=== PATIENT | male | born 1940 | race Caucasian/White ===

== ENCOUNTER → 2018-09-08 | Day surgery (SDC) | payer MEDICARE ==
[2018-09-07 14:35] LABS: BASOPHILS # (AUTO) 0.1 (0.0-0.1); BASOPHILS % 0.7 % (0.0-1.0); EOSINOPHILS # (AUTO) 0.2 (0.0-0.4); EOSINOPHILS % 2.7 % (0.0-6.0); HEMATOCRIT 43.4 % (38.2-49.6); HEMOGLOBIN 14.7 g/dL (14.0-18.0); LYMPHOCYTES # (AUTO) 0.7 (1.0-3.2); LYMPHOCYTES % 8.9 % (18.0-39.1); MEAN CORPUSCULAR HGB CONC 33.9 g/dL (31-35); MEAN CORPUSCULAR VOLUME 94.3 fL (81-99); MONOCYTES # (AUTO) 0.8 (0.2-0.8); MONOCYTES % 10.9 % (4.4-11.3); NEUTROPHILS # (AUTO) 5.8 (2.1-6.9); NEUTROPHILS % 76.5 % (38.7-80.0); PLATELET COUNT 234 x10e3/uL (140-360)
[2018-09-07 14:59] LABS: INR 0.94; PROTHROMBIN TIME 13.4 seconds (11.9-14.5)
[2018-09-07 15:09] LABS: ALBUMIN 4.1 g/dL (3.5-5.0); ALBUMIN/GLOBULIN RATIO 1.7 (0.8-2.0); ANION GAP 12.2 mmol/L (8-16); CALCIUM 9.2 mg/dL (8.4-10.2); CREATININE, SERUM 1.71 mg/dL (0.72-1.25); POTASSIUM 4.2 mmol/L (3.5-5.1)
[2018-09-08] VITALS (12 sets, daily range): BP systolic 98–154; BP diastolic 50–77
[~2018-09-08] VITALS: Ht 180.3 cm; Wt 90.7 kg
[~2018-09-08] MED LIST: BENICAR20 MG PO; FENTANYL CITRATE/PF 100MCG/2 ML INJ ONE; HEPARIN SOD/SOD CHLORIDE 2,000 ML ONE; HYDROCHLOROTHIA25 MG PO; IOPAMIDOL 300MG/ML 100 ML INFUS..BTL IV ONE; LIDOCAINE HCL 1% LOCAL INJ 20 ML VIAL ONE; MIDAZOLAM HCL 2 MG/2 ML VIAL ONE; SODIUM CHLORIDE 0.9% 1000ML 1,000 ML ONE; TOPROL XL25 MG PO; VERAPAMIL HCL 2.5 MG/ML 2 ML VIAL ONE
--- OUTSIDE RECORDS SUMMARY | 2018-09-08 08:44 | XMS REPORT | Clinical Summary ---
Author Author [facility] Organization [facility] Address Unknown Phone Unavailable Care Team Providers Care Sorter Packer Name Role Phone Tessa Merrill MD PCP Allergies No Known Allergies Medications End Date Status Medication Sig Dispensed Refills Start Date Active olmesartan (BENICAR) 5 MG Take 5 mg by 1 tablet mouth once 7 daily. Active Problems No known active problems Encounters Care Team Description Date Type Specialty Radha Chin Jr., MD Asymptomatic hypertension (Primary Dx) 06/20/2018 Emergency Emergency Medicine after 09/07/2017 Family History Medical History Relation Name Comments Diabetes Mother Relation Name Status Comments Mother Social History Date Tobacco Use Types Packs/Day Years Used Never Smoker Smokeless Tobacco: Never Used Alcohol Use Drinks/Week oz/Week Comments Yes 6 Cans of Every other day beer Sex Assigned at Date Recorded Not on file Industry Job Start Date Occupation Not on file Not on file Not on file Travel End Travel History Travel Start No recent travel history available. Last Filed Vital Signs Time Taken Vital Sign Reading 06/20/2018 10:19 PM [employer] Blood Pressure 134/65 06/20/2018 10:19 PM [employer] Pulse 85 06/20/2018 10:19 PM [employer] Temperature 36.4 C (97.5 F) 06/20/2018 10:19 PM [employer] Respiratory Rate 19 06/20/2018 6:48 PM [employer] Oxygen Saturation 94% - Inhaled Oxygen - Concentration 06/20/2018 5:21 PM [employer] Weight 90.7 kg (200 lb) 06/20/2018 5:21 PM [employer] Height 180.3 cm (5' 11") 06/20/2018 5:21 PM [employer] Body Mass Index 27.89 Plan of Treatment Health Maintenance Due Date Last Done Comments SHINGLES VACCINES (1 of 1992 2) PNEUMOCOCCAL 2007 POLYSACCHARIDE VACCINE AGE 65 AND OVER PNEUMOCOCCAL-13 2007 INFLUENZA VACCINE 03/16/2018 Procedures Comments Procedure Name Priority Date/Time Associated Diagnosis ECG ED PRELIMINARY Routine 06/20/2018 INTERPRETATION 7:03 PM [employer]TE [employer] ESTIMATED GFR STAT 06/20/2018 5:56 PM [employer]TE DR[employer] PROTHROMBIN TIME WITH INR STAT 06/20/2018 5:56 PM [employer] PARTIAL THROMBOPLASTIN STAT 06/20/2018 TIME (PTT) 5:56 PM [employer]TE DR[employer] B NATRIURETIC PEPTIDE STAT 06/20/2018 5:56 PM [employer]TE [employer] TROPONIN STAT 06/20/2018 5:56 PM [employer] COMPREHENSIVE METABOLIC STAT 06/20/2018 PANEL 5:56 PM [employer]TE DRIVER [employer] HC COMPLETE BLD COUNT STAT 06/20/2018 W/AUTO DIFF 5:56 PM [employer] XR CHEST 2 VW STAT 06/20/2018 5:42 PM [employer] ECG 12-LEAD STAT 06/20/2018 4:56 PM [employer]TE [employer] after 09/07/2017 Results * ECG ED Preliminary Interpretation - NOT AN ORDER (06/20/2018 7:03 PM ROUTE DRIVER SALESPERSON) Narrative Performed At Radha Chin Jr., MD 06/22/20183:56 AM ECG ED Preliminary Interpretation - Not an Order Performed by: RADHA CHIN JR. Authorized by: RADHA CHIN JR. ECG reviewed by ED Physician in the absence of a regional director: yes Rate: ECG rate:82 ECG rate assessment: normal Rhythm: Rhythm: sinus rhythm Ectopy: Ectopy: none QRS: QRS axis:Normal QRS intervals:Normal ST segments: ST segments:Abnormal ST segment depression noted on lead: mild, noted diffusely. * Estimated GFR (06/20/2018 5:56 PM ROUTE DRIVER SALESPERSON) Estimated GFR 48 (A) mL/min/1.73 m2 [facility] Comment: PATHOLOGY AND CatergoryUnitsInte GENOMIC MEDICINE rpretation G1 >=90 Normal or high G2 60-89Mildly decreased [id number] Mildly to moderately decreased [id number] Moderately to severely decreased G4 15-29Severely decreased G5 <15Kidney failure The eGFR was calculated using the Chronic Kidney Disease Epidemiology Collaboration (CKD-EPI) equation. Interpretation is based on recommendations of the National Kidney Foundation-Kidney Disease Outcomes Quality Initiative (NKF-KDOQI) published in 2014. Specimen Plasma specimen Performing Organization Address City/[facility]/Zipcode Phone Number [address] [place] [address] PATHOLOGY AND appAttach [facility] * Troponin (06/20/2018 5:56 PM ROUTE DRIVER SALESPERSON) Troponin <0.30 0.00 - 0.30 ng/mL [facility] Comment: PATHOLOGY AND 0.11 - 1.49 GENOMIC MEDICINE ng/mlMay indicate increased risk of acute coronary syndrome. >=1.5 ng/ml Consistent with acute myocardial infarction. The diagnostic value of a single normal or non-diagnostic result is questionable.Serial samples at 2-6 hour intervals are required to rule out acute myocardial injury. Specimen Plasma specimen Performing Organization Address [facility] Phone Number [address] [place] [address] PATHOLOGY AND [employer] [facility] * Partial thromboplastin time, activated (06/20/2018 5:56 PM ROUTE DRIVER SALESPERSON) PTT 27.8 23.0 - 36.0 sec [facility] Comment: PATHOLOGY AND PTT therapeutic range for GENOMIC MEDICINE unfractionated heparin is 61.0-112.0 seconds which corresponds to Anti-Xa 0.3-0.7 U/ml. Note:Change in Panic Value The PTT Panic Value is changing from 110 sec. to 100 sec. due to new instrumentation and reagents. Correlation studies have been performed to validate this result. Specimen Blood Performing Organization Address [facility] Phone Number [address] [place] [id number] PATHOLOGY AND [employer] [facility] * Prothrombin time with INR (06/20/2018 5:56 PM ROUTE DRIVER SALESPERSON) Prothrombin time 12.5 11.5 - 14.5 sec [facility] PATHOLOGY AND app[employer]ach MEDICINE INR 0.96 [facility] Comment: PATHOLOGY AND For patients on anticoagulant GENOMIC MEDICINE therapy, reference ranges below: Indication: INR Value Treatment of Venous Thrombosis, 2.0-3.0 pulmonary emboli, or prophylaxis of a venous thrombosis, or systemic emboli. High dose, high risk patients 3.0-4.5 with mechanical valves. NOTE:INR values over 3.0 are sometimes associated with gastrointestinal hemorrhage, especially values over 4.0. Specimen Blood Performing Organization Address City/State/Zipcode Phone Number [place] [phone] [place] [address] PATHOLOGY AND GENOMIC MEDICINE * CBC with platelet and differential (06/20/2018 5:56 PM ROUTE DRIVER SALESPERSON) WBC 7.1 4.2 - 11.0 k/uL [facility]Y AND GENOMIC MEDICINE RBC 4.63 4.04 - 5.86 m/uL [facility]Y AND GENOMIC MEDICINE HGB 14.8 13.0 - 17.3 g/dL [facility] AND GENOMIC MEDICINE HCT 44.3 34.0 - 45.0 % [facility] AND GENOMIC MEDICINE MCV 95.7 80.0 - 98.0 fL [facility] AND GENOMIC MEDICINE MCH 32.0 27.0 - 34.0 pg [facility]OLOGY AND GENOMIC MEDICINE MCHC 33.4 31.5 - 36.5 g/dL [facility]Y AND GENOMIC MEDICINE RDW - SD 45.4 37.0 - 51.0 fL [facility] AND GENOMIC MEDICINE MPV 10.5 (H) 7.4 - 10.4 fL [facility] AND GENOMIC MEDICINE Platelet count 211 150 - 400 k/uL [facility] AND GENOMIC MEDICINE Nucleated RBC 0.00 /100 WBC [facility]OLOGY AND GENOMIC MEDICINE Neutrophils 71.5 (H) 36.0 - 66.0 % [facility] AND GENOMIC MEDICINE Lymphocytes 11.9 (L) 24.0 - 44.0 % [facility] AND GENOMIC MEDICINE Monocytes 13.7 (H) 0.0 - 6.0 % [facility] AND GENOMIC MEDICINE Eosinophils 1.8 0.0 - 6.0 % [facility] AND GENOMIC MEDICINE Basophils 0.8 0.0 - 1.2 % [facility] AND GENOMIC MEDICINE Immature granulocytes 0.3 0.0 - 1.0 % [facility] AND GENOMIC MEDICINE Specimen Blood Performing Organization Address City/[facility] Phone Number [facility] [address] [place] [address] PATHOLOGY AND GENOMIC MEDICINE * B natriuretic peptide (06/20/2018 5:56 PM ROUTE DRIVER SALESPERSON) BNP 96 0 - 100 pg/mL [facility]OLOGY AND GENOMIC MEDICINE Specimen Blood Performing Organization Address [facility] Centercode Phone Number [facility] [place] [address] [place] [address] PATHOLOGY AND GENOMIC MEDICINE * Comprehensive metabolic panel (06/20/2018 5:56 PM ROUTE DRIVER SALESPERSON) Sodium 138 135 - 150 mEq/L [facility]OLOGY AND GENOMIC MEDICINE Potassium 4.1 3.5 - 5.0 mEq/L [facility]OLOGY AND GENOMIC MEDICINE Chloride 102 98 - 112 mEq/L [facility]OLOGY AND GENOMIC MEDICINE CO2 25 24 - 31 mmol/L [facility]Y AND GENOMIC MEDICINE Anion gap 11@ANIO 7 - 15 mEq/L [facility]Y AND GENOMIC MEDICINE BUN 19 (H) 7 - 18 mg/dL [facility] AND GENOMIC MEDICINE Creatinine 1.40 (H) 0.70 - 1.20 mg/dL [facility] AND GENOMIC MEDICINE Glucose 111 (H) 65 - 100 mg/dL [facility] AND GENOMIC MEDICINE Calcium 8.9 8.8 - 10.2 mg/dL [facility] AND GENOMIC MEDICINE Protein 6.5 6.3 - 8.3 g/dL [facility] AND GENOMIC MEDICINE Albumin 3.7 3.5 - 5.0 g/dL [facility] AND GENOMIC MEDICINE A/G ratio 1.3 0.7 - 3.8 [facility] AND GENOMIC MEDICINE Alkaline phosphatase 30 0 - 129 U/L [facility] AND GENOMIC MEDICINE AST 19 10 - 50 U/L [facility] AND GENOMIC MEDICINE ALT 16 5 - 50 U/L [facility] AND GENOMIC MEDICINE Total bilirubin 0.4 0.2 - 1.2 mg/dL [facility] AND GENOMIC MEDICINE Specimen Plasma specimen Performing Organization Address [facility] Centercode Phone Number [facility] [address] [place] [address] PATHOLOGY AND GENOMIC MEDICINE * XR Chest 2 Vw (06/20/2018 5:42 PM ROUTE DRIVER SALESPERSON) Narrative Performed At EXAMINATION:XR CHEST 2 VW [facility] CLINICAL HISTORY:Chest painnormal ekg COMPARISON:None Technique:PA and lateral chest radiographs are obtained. IMPRESSION: 1.There appear to be COPD changes bilaterally, as well as mild scarring in the left lower lobe. No acute consolidation is seen. 2.There is no pleural fluid or pneumothorax. 3.The heart size and mediastinal contours are within normal limits. 4.There is no significant skeletal abnormality. [id number] Procedure Note Hm Interface, Radiology Results Incoming - 06/20/2018 5:47 PM ROUTE DRIVER SALESPERSON EXAMINATION: XR CHEST 2 VW CLINICAL HISTORY: Chest pain normal ekg COMPARISON: None Technique: PA and lateral chest radiographs are obtained. IMPRESSION: 1. There appear to be COPD changes bilaterally, as well as mild scarring in the left lower lobe. No acute consolidation is seen. 2. There is no pleural fluid or pneumothorax. 3. The heart size and mediastinal contours are within normal limits. 4. There is no significant skeletal abnormality. [id number] Performing Organization Address [facility] Phone Number [facility] [address] [place] [address] * ECG 12 lead (06/20/2018 4:56 PM ROUTE DRIVER SALESPERSON) Ventricular rate 82 [facility] Atrial rate 82 [facility] OR interval 126 [facility] QRSD interval 84 [facility] QT interval 372 [facility] QTC interval 434 [facility] P axis 1 59 [facility] QRS axis 1 -19 [facility] T wave axis 22 [facility] EKG impression Normal sinus [facility] rhythm-Nonspecific ST abnormality-Abnormal ECG-No previous ECGs available- Performing Organization Address City/State/[facility] Cent[facility]ode Phone Number [facility] [address] [place] [address] after 09/07/2017 Insurance Payer Benefit Subscriber ID Type Phone Address Plan / Group [facility] MEDICARE [facility] [place]xxxxxxxx [facility] [place] Advance Directives Patient has advance care planning documents on file. For more information, [place] contact: Tho Gonsales [address] [facility] [place] [address]
--- NOTE | 2018-09-08 12:00 | NUR ---
1200 Received report Carrier Rn Identifierx2 Peripheral fix x2 CSI Dr Shi Back to baseline orientation PEERLA Resp. shallow and regular 98% Ra. Abd soft and non tender denies necessity to defecate or urinate. left iv infusing w/o s/s infiltration controller set at 75cchr. Bilateral femoral pulses present PT/DP Rt groin mynx dressing dry and intact w/o. at bedside. Deepthi Ordered diet tray denies c/o Cp or sob Pt in Sinus marry. For dc with flat time to 330pm return to Dr. Shi office for followup
--- NOTE | 2018-09-08 15:30 | NUR ---
1530 discharge instructions completed to Deepthi with copies Down time compleed site to rt groin w/o bleeding and hematoma Tolerating po intake and voiding well Iv removed site w/o infiltration, coban dressing assisted to car per [facility] staff escort Yulia [employer]. no c/o distress vs stable and vs as well as entry site denies CP or SOB PPx4 present. 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
--- NOTE | 2018-10-17 18:40 | Operative Report ---
DATE OF PROCEDURE: 09/08/2018 SURGEON: Kal Shi DO PROCEDURES PERFORMED: 1. Abdominal aortography. 2. Third-order peripheral angiography of the left lower extremity. 3. Conscious sedation, 90 minutes. 4. Orbital atherectomy and percutaneous transluminal angioplasty of the left posterior tibial artery. 5. Percutaneous transluminal angioplasty of the left peroneal artery. 6. Status post drug-coated balloon angioplasty of the tibioperoneal trunk. 7. Primary thrombectomy, artery PREPROCEDURE DIAGNOSIS: Peripheral arterial disease with claudication. POSTPROCEDURE DIAGNOSIS: Peripheral arterial disease with claudication. ESTIMATED BLOOD LOSS: Less than 20 mL. SPECIMENS REMOVED: None. PROCEDURE IN DETAIL: After informed consent was obtained, the patient was brought to the cardiac catheterization laboratory in a fasting and nonsedated state. Bilateral groins were prepped and draped in the usual sterile fashion. Lidocaine 2% was infiltrated over the right anterior groin for local anesthesia. Using micropuncture needle, the right common femoral artery was accessed via modified Seldinger technique and a 5-Omani sheath was placed. Next, abdominal aortography was performed using Omni Flush catheter. 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 Decision was made to perform percutaneous intervention and the patient received systemic heparin for therapeutic anticoagulation. Next, I exchanged out [id number] for an up-and-over 65 cm sheath. Next, lesion in the posterior tibial vessel was crossed with wire escalation and I exchanged out for a Viper wire. Next, I performed atherectomy of the left posterior tibial with a CSI Diamondback balloon and then subsequent angioplasty with a 2.5 then upscaled to a 3 mm balloon. Next, I performed a balloon angioplasty of the tibioperoneal trunk with a 5 mm Lutonix coated balloon. There was some plaque shift into the peroneal vessel, which also had to be angioplastied with the 5 mm balloon. Final angiography revealed excellent angioplasty results of the tibioperoneal trunk, peroneal and posterior tibial vessels. 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 The patient tolerated the procedure well with no immediate complications. He was transferred back to his room in stable condition. DO SRINIVASA Carrillo/JESSICA /[id number] SANA
== END | disposition home or self-care (01) ==
LOC: CATH LAB 08:41
PROVIDERS: ATTEND Internal Medicine Cardiovascular Disease
DX: I70.212 Atherosclerosis of native arteries of extremities with intermittent claudication, left leg (principal); I70.92 Chronic total occlusion of artery of the extremities; I10 Essential (primary) hypertension; R60.0 Localized edema; I20.9 Angina pectoris, unspecified; I87.2 Venous insufficiency (chronic) (peripheral); Z01.812 Encounter for preprocedural laboratory examination; Z82.49 Family history of ischemic heart disease and other diseases of the circulatory system
CPT/HCPCS: 36415; 37229; 37232; 75625; 75710; 80053; 85025; 85347; 85610; C1724; C1725 ×4; C1760; C1766; C2623; J2001; J2250; J7030; Q9967; 36247; 37186

== ENCOUNTER 2018-12-08 07:32 | Observation (INO) | payer MEDICARE ==
[2018-12-07 13:58] LABS: BASOPHILS # (AUTO) 0.1 (0.0-0.1); BASOPHILS % 0.7 % (0.0-1.0); EOSINOPHILS # (AUTO) 0.1 (0.0-0.4); EOSINOPHILS % 1.8 % (0.0-6.0); HEMATOCRIT 40.5 % (38.2-49.6); HEMOGLOBIN 13.8 g/dL (14.0-18.0); LYMPHOCYTES # (AUTO) 0.7 (1.0-3.2); LYMPHOCYTES % 9.6 % (18.0-39.1); MEAN CORPUSCULAR HEMOGLOBIN 32.5 pg (28-32); MEAN CORPUSCULAR HGB CONC 34.1 g/dL (31-35); MEAN CORPUSCULAR VOLUME 95.5 fL (81-99); MONOCYTES # (AUTO) 0.8 (0.2-0.8); MONOCYTES % 11.1 % (4.4-11.3); NEUTROPHILS # (AUTO) 5.4 (2.1-6.9); NEUTROPHILS % 75.7 % (38.7-80.0); PLATELET COUNT 257 x10e3/uL (140-360); RED BLOOD COUNT 4.24 x10e6/uL (4.3-5.7); RED CELL DISTRIBUTION WIDTH 13.5 % (11.7-14.4)
[2018-12-07 14:03] LABS: INR 0.9; PROTHROMBIN TIME 12.6 seconds (11.9-14.5)
[2018-12-08] VITALS (33 sets, daily range): BP systolic 92–177; BP diastolic 38–81
[~2018-12-08] VITALS: Ht 180.3 cm; Wt 91.2 kg
[~2018-12-08 07:32] MED LIST changes: +CLOPIDOGREL75 MG PO; -FENTANYL CITRATE/PF 100MCG/2 ML INJ ONE; -HEPARIN SOD/SOD CHLORIDE 2,000 ML ONE; -IOPAMIDOL 300MG/ML 100 ML INFUS..BTL IV ONE; -LIDOCAINE HCL 1% LOCAL INJ 20 ML VIAL ONE; -MIDAZOLAM HCL 2 MG/2 ML VIAL ONE; -SODIUM CHLORIDE 0.9% 1000ML 1,000 ML ONE; -VERAPAMIL HCL 2.5 MG/ML 2 ML VIAL ONE
--- OUTSIDE RECORDS SUMMARY | 2018-12-08 07:34 | XMS REPORT | Clinical Summary ---
Author Author [facility] Organization [facility] Address Unknown Phone Unavailable Care Team Providers Care Director Teen [facility] Name Role Phone Tessa Merrill MD PCP Allergies No Known Allergies Medications End Date Status Medication Sig Dispensed Refills Start Date Active metoprolol succinate XL Take 25 mg by 2 (TOPROL-XL) 25 mg 24 hr mouth daily. 9 tablet Active hydroCHLOROthiazide 1 TABLET IN 5 (HYDRODIURIL) 25 MG THE MORNING 9 tablet ONCE A DAY ORALLY 30 DAY(S) Active clopidogrel (PLAVIX) 75 Take 75 mg by 3 mg tablet mouth daily. 9 Active olmesartan (BENICAR) 20 TAKE 12 2 MG tablet TABLET BY 8 MOUTH TWICE A DAY Active acetaZOLAMIDE (DIAMOX) TAKE 1 0 500 mg capsule CAPSULE BY 9 MOUTH THE DAY AFTER SURGERY AT 700 AM Active keTOROlac (ACULAR) 0.5 % INSTILL 1 0 ophthalmic solution DROP INTO 9 SURGERY EYE ONCE DAILY FOR 30 DAYS BEGIN 2 DAYS BEFORE SURGERY Active moxifloxacin (VIGAMOX) INSTILL 1 0 0.5 % ophthalmic solution DROP INTO 9 SURGERY EYE 4 TIMES DAILY FOR 10 DAYS START 2 DAYS PRIOR TO SURGERY Active prednisoLONE acetate INSTILL 1 0 (PRED FORTE) 1 % DROP INTO 9 ophthalmic suspension SURGERY EYE 4 TIMES DAILY FOR 7 DAYS, DECREASING BY 1 DROP EACH WEEK FOR A TOTAL OF 4 WEEKS 10/07/2018 Discontinued olmesartan (BENICAR) 5 MG Take 5 mg by 1 tablet mouth once 7 daily. 10/11/2018 Discontinued olmesartan (BENICAR) 40 TAKE 12 5 MG tablet TABLET (20MG) 9 BY MOUTH TWICE A DAY Active Problems Problem Noted Date Nuclear sclerotic cataract of right eye 10/25/2018 Resolved Problems Problem Noted Date Resolved Date Nuclear sclerotic cataract of left eye 10/11/2018 10/25/2018 Encounters Care Team Description Date Type Specialty Nish Ramsey MD PHACOEMULSIFICATION, CATARACT, WITH IOL IMPLANTATION 10/25/2018 Surgery General Surgery Flaco Mcnulty MD 10/25/2018 Anesthesia General Surgery Event Nish Ramsey MD Nuclear sclerotic cataract of right eye (Primary Dx) 10/25/2018 Hospital General Surgery Encounter Nish Ramsey MD PHACOEMULSIFICATION, CATARACT, WITH IOL IMPLANTATION 10/11/2018 Surgery General Surgery Flaco Mcnulty MD 10/11/2018 Anesthesia General Surgery Event Nish Ramsey MD Nuclear sclerotic cataract of left eye (Primary Dx) 10/11/2018 Hospital General Surgery Encounter Radha Chin Jr., MD Asymptomatic hypertension (Primary Dx) 06/20/2018 Emergency Emergency Medicine after 12/07/2017 Family History Medical History Relation Name Comments [...] Vital Signs Time Taken Vital Sign Reading 10/25/2018 10:17 AM CDT Blood Pressure 177/80 10/25/2018 10:20 AM CDT Pulse 67 10/25/2018 10:13 AM CDT Temperature 36.2 C (97.1 F) 10/25/2018 10:17 AM CDT Respiratory Rate 16 10/25/2018 10:20 AM CDT Oxygen Saturation 93% - Inhaled Oxygen - Concentration 10/25/2018 8:57 AM CDT Weight 92.3 kg (203 lb 6.4 oz) 10/11/2018 6:11 AM DOWELING MACHINE OPERATOR Height 180.3 cm (5' 11") 10/25/2018 8:57 AM CDT Body Mass Index 28.37 Plan of Treatment Health Maintenance Due Date Last Done Comments SHINGLES VACCINES (#1) 1992 65+ PNEUMOCOCCAL VACCINE 2007 (1 of 2 - PCV13) PNEUMOCOCCAL 2007 POLYSACCHARIDE VACCINE AGE 65 AND OVER INFLUENZA VACCINE 03/16/2019 Implants Device Identifier Shelf Expiration Date Model / Serial / Lot Implanted Type Area Manufactur er 05/15/2023 SA60WF 205 / [id number] / [id number] Lens Ascrysof Aspheric Uv Absorbing Intraocula Left: Eye AMAN 20.5.Od 13mmx6.0mm - [id number] - r [employer] [id number] Implant [employer] Implanted: Qty: 1 on 10/11/2018 by Nish Ramsey MD 04/15/2023 [id number] 210 / [id number] / [id number] Lens Ascrysof Aspheric Uv Absorbing Intraocula Right: Eye AMAN 21.0.Od 13mmx6.0mm - [id number] - r [employer] [id number] Implant [employer] Implanted: Qty: 1 on 10/25/2018 by Nish Ramsey MD Procedures Comments Procedure Name Priority Date/Time Associated Diagnosis PHACOEMULSIFICATION, 10/25/2018 Age-related nuclear CATARACT, WITH IOL 10:40 AM CDT cataract, right IMPLANTATION Special Needs SA60WF +21.00 PHACOEMULSIFICATION, 10/11/2018 Age-related nuclear CATARACT, WITH IOL 7:25 AM DOWELING MACHINE OPERATOR cataract of left eye IMPLANTATION Special Needs SA60WF+20. 50 ECG ED PRELIMINARY Routine 06/20/2018 INTERPRETATION 7:03 PM DOWELING MACHINE OPERATOR ESTIMATED GFR STAT 06/20/2018 5:56 PM DOWELING MACHINE OPERATOR PROTHROMBIN TIME WITH INR STAT 06/20/2018 5:56 PM DOWELING MACHINE OPERATOR PARTIAL THROMBOPLASTIN STAT 06/20/2018 TIME (PTT) 5:56 PM DOWELING MACHINE OPERATOR B NATRIURETIC PEPTIDE STAT 06/20/2018 5:56 PM DOWELING MACHINE OPERATOR TROPONIN STAT 06/20/2018 5:56 PM DOWELING MACHINE OPERATOR COMPREHENSIVE METABOLIC STAT 06/20/2018 PANEL 5:56 PM DOWELING MACHINE OPERATOR HC COMPLETE BLD COUNT STAT 06/20/2018 W/AUTO DIFF 5:56 PM DOWELING MACHINE OPERATOR XR CHEST 2 VW STAT 06/20/2018 5:42 PM DOWELING MACHINE OPERATOR ECG 12-LEAD STAT 06/20/2018 4:56 PM DOWELING MACHINE OPERATOR after 12/07/2017 Results * ECG ED Preliminary Interpretation - NOT AN ORDER (06/20/2018 7:03 PM DOWELING MACHINE OPERATOR) Narrative Performed At Radha Chin Jr., MD 06/22/20183:56 AM ECG ED Preliminary Interpretation - Not an Order Performed by: RADHA CHIN JR. Authorized by: RADHA CHIN JR. ECG reviewed by ED Physician in the absence of a agate setter: yes Rate: ECG rate:82 ECG rate assessment: normal Rhythm: Rhythm: sinus rhythm Ectopy: Ectopy: none QRS: QRS axis:Normal QRS intervals:Normal ST segments: ST segments:Abnormal ST segment depression noted on lead: mild, noted diffusely. * Estimated GFR (06/20/2018 5:56 PM DOWELING MACHINE OPERATOR) Estimated GFR 48 (A) mL/min/1.73 m2 [facility] OF Comment: PATHOLOGY AND CatergoryUnitsInte GENOMIC MEDICINE rpretation G1 >=90 Normal or high G2 60-89Mildly decreased Y5t10-95 Mildly to moderately decreased B1d42-42 Moderately to severely decreased G4 15-29Severely decreased G5 <15Kidney failure The eGFR was calculated using the Chronic Kidney Disease Epidemiology Collaboration (CKD-EPI) equation. Interpretation is based on recommendations of the National Kidney Foundation-Kidney Disease Outcomes Quality Initiative (NKF-KDOQI) published in 2014. Specimen Plasma specimen Performing Organization Address City/State/Zipcode Phone Number [facility] DEPART[facility] OF [address] [place] [address] PATHOLOGY AND GENOMIC MEDICINE * Troponin (06/20/2018 5:56 PM DOWELING MACHINE OPERATOR) Troponin <0.30 0.00 - 0.30 ng/mL [facility] OF Comment: PATHOLOGY AND 0.11 - 1.49 GENOMIC MEDICINE ng/mlMay indicate increased risk of acute coronary syndrome. >=1.5 ng/ml Consistent with acute myocardial infarction. The diagnostic value of a single normal or non-diagnostic result is questionable.Serial samples at 2-6 hour intervals are required to rule out acute myocardial injury. Specimen Plasma specimen Performing Organization Address [facility] Phone Number [facility] [address] [facility]. [place] [id number] PATHOLOGY AND [employer] [facility] * Partial thromboplastin time, activated (06/20/2018 5:56 PM DOWELING MACHINE OPERATOR) PTT 27.8 23.0 - 36.0 sec [facility] OF Comment: PATHOLOGY AND PTT therapeutic range for GENOMIC MEDICINE unfractionated heparin is 61.0-112.0 seconds which corresponds to Anti-Xa 0.3-0.7 U/ml. Note:Change in Panic Value The PTT Panic Value is changing from 110 sec. to 100 sec. due to new instrumentation and reagents. Correlation studies have been performed to validate this result. Specimen Blood Performing Organization Address [facility] Phone Number [address] [place] [address] PATHOLOGY AND [employer] [facility] * Prothrombin time with INR (06/20/2018 5:56 PM DOWELING MACHINE OPERATOR) Prothrombin time 12.5 11.5 - 14.5 sec [facility] OF PATHOLOGY AND [employer] MEDICINE INR 0.96 [facility] OF Comment: PATHOLOGY AND For patients on anticoagulant GENOMIC MEDICINE therapy, reference ranges below: Indication: INR Value Treatment of Venous Thrombosis, 2.0-3.0 pulmonary emboli, or prophylaxis of a venous thrombosis, or systemic emboli. High dose, high risk patients 3.0-4.5 with mechanical valves. NOTE:INR values over 3.0 are sometimes associated with gastrointestinal hemorrhage, especially values over 4.0. Specimen Blood Performing Organization Address [facility] Phone Number [facility] [address] [place] [address]. [place] [phone] PATHOLOGY AND [employer] MEDICINE * CBC with platelet and differential (06/20/2018 5:56 PM DOWELING MACHINE OPERATOR) WBC 7.1 4.2 - 11.0 k/uL [facility] DE[facility] OF PATHOLOGY AND GENOMIC MEDICINE RBC 4.63 4.04 - 5.86 m/uL [facility] OF PATHOLOGY AND GENOMIC MEDICINE HGB 14.8 13.0 - 17.3 g/dL [facility] DE[facility] OF PATHOLOGY AND GENOMIC MEDICINE HCT 44.3 34.0 - 45.0 % [facility] OF PATHOLOGY AND GENOMIC MEDICINE MCV 95.7 80.0 - 98.0 fL [facility] OF PATHOLOGY AND GENOMIC MEDICINE MCH 32.0 27.0 - 34.0 pg [facility] DE[facility] OF PATHOLOGY AND GENOMIC MEDICINE MCHC 33.4 31.5 - 36.5 g/dL [facility] DE[facility]MENT OF PATHOLOGY AND GENOMIC MEDICINE RDW - SD 45.4 37.0 - 51.0 fL [facility] OF PATHOLOGY AND GENOMIC MEDICINE MPV 10.5 (H) 7.4 - 10.4 fL [facility] OF PATHOLOGY AND GENOMIC MEDICINE Platelet count 211 150 - 400 k/uL [facility] OF PATHOLOGY AND GENOMIC MEDICINE Nucleated RBC 0.00 /100 WBC [facility] DE[facility] OF PATHOLOGY AND GENOMIC MEDICINE Neutrophils 71.5 (H) 36.0 - 66.0 % [facility] OF PATHOLOGY AND GENOMIC MEDICINE Lymphocytes 11.9 (L) 24.0 - 44.0 % [facility] OF PATHOLOGY AND GENOMIC MEDICINE Monocytes 13.7 (H) 0.0 - 6.0 % [facility] OF PATHOLOGY AND GENOMIC MEDICINE Eosinophils 1.8 0.0 - 6.0 % [facility] OF PATHOLOGY AND GENOMIC MEDICINE Basophils 0.8 0.0 - 1.2 % [facility] OF PATHOLOGY AND GENOMIC MEDICINE Immature granulocytes 0.3 0.0 - 1.0 % [facility] OF PATHOLOGY AND GENOMIC MEDICINE Specimen Blood Performing Organization Address City/[facility] [place] [address] PATHOLOGY AND GENOMIC MEDICINE * B natriuretic peptide (06/20/2018 5:56 PM DOWELING MACHINE OPERATOR) BNP 96 0 - 100 pg/mL [facility] PATHOLOGY AND GENOMIC MEDICINE Specimen Blood Performing Organization Address City/[facility] [place] [address] PATHOLOGY AND GENOMIC [facility] * Comprehensive metabolic panel (06/20/2018 5:56 PM DOWELING MACHINE OPERATOR) Sodium 138 135 - 150 mEq/L [facility] OF PATHOLOGY AND GENOMIC MEDICINE Potassium 4.1 3.5 - 5.0 mEq/L [facility] OF PATHOLOGY AND GENOMIC MEDICINE Chloride 102 98 - 112 mEq/L [facility] OF PATHOLOGY AND GENOMIC MEDICINE CO2 25 24 - 31 mmol/L [facility] OF PATHOLOGY AND GENOMIC MEDICINE Anion gap 11@ANIO 7 - 15 mEq/L [facility] OF PATHOLOGY AND GENOMIC MEDICINE BUN 19 (H) 7 - 18 mg/dL [facility] OF PATHOLOGY AND GENOMIC MEDICINE Creatinine 1.40 (H) 0.70 - 1.20 mg/dL [facility] OF PATHOLOGY AND GENOMIC MEDICINE Glucose 111 (H) 65 - 100 mg/dL [facility] OF PATHOLOGY AND GENOMIC MEDICINE Calcium 8.9 8.8 - 10.2 mg/dL [facility] OF PATHOLOGY AND GENOMIC MEDICINE Protein 6.5 6.3 - 8.3 g/dL [facility] OF PATHOLOGY AND GENOMIC MEDICINE Albumin 3.7 3.5 - 5.0 g/dL [facility] OF PATHOLOGY AND GENOMIC MEDICINE A/G ratio 1.3 0.7 - 3.8 [facility] OF PATHOLOGY AND GENOMIC MEDICINE Alkaline phosphatase 30 0 - 129 U/L [facility] OF PATHOLOGY AND GENOMIC MEDICINE AST 19 10 - 50 U/L [facility] OF PATHOLOGY AND GENOMIC MEDICINE ALT 16 5 - 50 U/L [facility] OF PATHOLOGY AND GENOMIC MEDICINE Total bilirubin 0.4 0.2 - 1.2 mg/dL [facility] OF PATHOLOGY AND GENOMIC MEDICINE Specimen Plasma specimen Performing Organization Address City/State/Zipcode Phone Number [facility] [address] [place] [address] PATHOLOGY AND GENOMIC MEDICINE * XR Chest 2 Vw (06/20/2018 5:42 PM DOWELING MACHINE OPERATOR) Narrative Performed At EXAMINATION:XR CHEST 2 VW [...] limits. 4.There is no significant skeletal abnormality. [id number] Procedure Note Interface, Radiology Results Incoming - 06/20/2018 5:47 PM DOWELING MACHINE OPERATOR EXAMINATION: XR CHEST 2 VW CLINICAL HISTORY: [...] 4. There is no significant skeletal abnormality. [id number] Performing Organization Address City/State/Zipcode Phone Number [facility] [address] [place] [address] * ECG 12 lead (06/20/2018 4:56 PM DOWELING MACHINE OPERATOR) Ventricular rate 82 [facility] Atrial rate 82 [facility] OH interval 126 [facility] QRSD interval 84 [facility] QT interval 372 [facility] QTC interval 434 [facility] P axis 1 59 [facility] QRS axis 1 -19 [facility] T wave axis 22 [facility] EKG impression Normal sinus [facility] rhythm-Nonspecific ST abnormality-Abnormal ECG-No previous ECGs available- Performing Organization Address City/[facility]/Zipcode Phone Number [facility] [address] [place] [address] after 12/07/2017 Insurance Payer Benefit Subscriber ID Type Phone Address Plan / Group UHC MEDICARE UHC xxxxxxxxx O MEDICARE HMO/PPO Advance Directives Patient has advance care planning documents on file. For more information, [place] due[place] contact: Tho Gonsales [address] [place] [address]
[2018-12-08 09:47] LABS: ALBUMIN 3.9 g/dL (3.5-5.0); ALBUMIN/GLOBULIN RATIO 1.6 (0.8-2.0); ANION GAP 11.4 mmol/L (8-16); CALCIUM 9.3 mg/dL (8.4-10.2); CREATININE, SERUM 1.53 mg/dL (0.72-1.25)
[2018-12-08 09:48] LABS: POTASSIUM 5.4 mmol/L (3.5-5.1)
[2018-12-08] MEDS ORDERED: MIDAZOLAM HCL 2 MG/2 ML VIAL ONE ×4 (09:54→17:49)
[2018-12-08] MEDS ORDERED: LIDOCAINE HCL 2% LOCAL 20 ML VIAL ONE ×3 (09:55→18:15)
[2018-12-08] MEDS ORDERED: FENTANYL CITRATE/PF 100MCG/2 ML INJ ONE ×2 (09:55→16:36)
[2018-12-08] MEDS ORDERED: SODIUM CHLORIDE 0.9% 1000ML 0 ML ONE (09:55)
[2018-12-08] MEDS ORDERED: HEPARIN SOD/SOD CHLORIDE 2,000 ML ONE (09:55)
[2018-12-08] MEDS ORDERED: IOPAMIDOL 370 MG/ML 200 ML INFUS..BTL INJ ONE (09:55)
[2018-12-08] MEDS ORDERED: IOPAMIDOL 300MG/ML 50ML INFUS..BTL IV ONE (11:46)
--- NOTE | 2018-12-08 11:50 | NUR ---
[facility] Pt did not complete peripheral case and is returning to [facility] dental lab technician for monitoring. Flush sheath to rt groin [id number] and vs [id number] Site to rt groin intact with sheath sutured Stable vs and no gross signs pain pallor pressure or dysrhythmia. Family at bedside. Iv intact w/o s/s infiltration. amparo/rn
--- NOTE | 2018-12-08 11:55 | NUR ---
[id number] Received pt from [facility] Maid to recovery rm #[id number] Peripheral angio not finished Rt Sheath in place No gross signs pain pallor pressure or paon Waffle in place and inflated for comfort Condom cath placed with cormier bag for comfort Abdomen soft and non tender denies necessity to defecate. PPx4 with doppler only Left food cool and previously noted by Cath team that way. Back to baseline oreintation Resp shallow and regular 98% RA Rt iv site w/o s/s infiltration scheduled Sheath flushes q10min. Rt groin sheath is sutured and no hematoma of oozing noted at site. Recieved verbal report from catheterization laboratory technician nurse Lori and Jabari RN awaiting table time to complete case by Dr Shi. Vs stable Denies any active CP or SOB Family at [place] Dr Shi spoke with family and pt regarding POC.Pt and family aware to remain NPO RT leg straight and HOB down, Denies any other c/o. ds/rn
--- NOTE | 2018-12-08 13:00 | NUR ---
1300 Hand off report to Jabari Newman who will continue to flush and monitor sheath site Stable no gross sign pain,pallor,pressure and remains in Sinus Josh Denies c/o awaiting procedural time to complete fix ds/rn
--- NOTE | 2018-12-08 13:30 | NUR ---
1330pm Received hand off back from Jabari RN Continue to flush sheath q10min and vs [id number]. Rt sheath intact and stable. Denies CP or SOB remains NPO family at bedside Monitor sinus marry.No gross signs pain,pallor,or pressure. ds/rn
--- NOTE | 2018-12-08 13:45 | NUR ---
1345 3000u ivp Heparing for resulting act 229 Received t/o per Dr Shi
--- NOTE | 2018-12-08 16:15 | NUR ---
1615pm proceed to reload pt for completion of Peripheral fix per Dr Shi .Last ACT 1530 229 reported to component lab tech nurse last ns flush to rt groin Site remain w/o pain ,bleeding ,pallor issues PPx4 present with doppler only and left foot cool as in pre assessment Sheath intact and family remains at bedside. Remain SB 47,99% RA, 11 respiration b/p150/52. Denes CP,Sob or discomfort Waffle mattress deflated to transfer back to [employer] Report to Jabari Bradley RN procedural component lab tech Nurse. Family aware of POC. ds/rn
[2018-12-08] MEDS ORDERED: SODIUM CHLORIDE 0.9% 1000ML 1,000 ML ONE (16:37)
[2018-12-08] MEDS ORDERED: NITROGLYCERIN/D5W 200 MCG/ML 250 ML ONE (16:37)
[2018-12-08] MEDS ORDERED: VERAPAMIL HCL 2.5 MG/ML 2 ML VIAL ONE (16:37)
--- NOTE | 2018-12-08 19:35 | NUR ---
continue of care post recovery. review of procedural findings and medications given. Patient drowsy, easily aroused. maintains airway and 2l/nc saturations of 99-100%. No gross issues of pressure, pain, pallor or dysrhythmia. IV site patent with NS 0.9% at KVO by dial-flow to right hand. patient hemodynamically stable with hemostasis right groin, pascual patch in use. dressing CDI w/o s/s of bleeding. TR band to left DP w/ 11ml air [facility]. [facility] [place] [facility] [place]: peripheral angiogram Sheath puller: dr lema deployed 6 fr angioseal VIP to right groin, Natanael ELECTROPLATING SALES REPRESENTATIVE TR band 11ml Meds Given Intra-Procedure Sedatives Versed - 4 mg Fentanyl - 100 mcg Anticoagulants Heparin - 7000 Units Fluids Input - 300ml Output - 200ml Contrast Isovue 300 - 220ml Other Meds NA
--- NOTE | 2018-12-08 20:30 | NUR ---
pt tolerating po at a paced rate w/o reoccurring event. titrating TR band from foot - reduced by 2ml. foot warm and dry. right groin remains CDI. BP trending low. PT neuro appropriate. no acute distress. continuing to monitor closely - cgf
--- NOTE | 2018-12-08 21:00 | NUR ---
Pedal TR band titrated completely off, occlusive dressing applied. Foot warm to touch w/o gross discolor. + neurovascular function No c/o pain or discomfort. pt verbalized understanding of education - cgf
--- NOTE | 2018-12-08 21:48 | NUR ---
phone report provided to Nina LARSON. pt Alert oriented and appropriate, PERRLA, respirations even and unlabored to room air. Pulses x4 extremities equal and weak . Cap fill brisk < 3 sec. right groin and left foot access dressings CDI. Skin warm and dry integrity appears intact. IV 20g to right hand presents healthy w/o s/s of infiltration or complaint. Abdomen soft and supple. pt offered toileting, denies need to urinate or defecate. condom catheter remains to bedside drainage. personal affects with patient. Family not available. Pt verbalizes understanding of POC. Patient transferred from dental laboratory worker to [facility] by escort on bed,. Currently w/o complaint of pain or need. belongings with patient. Discharge pending.-cgf
--- NOTE | 2018-12-08 22:10 | NUR ---
Pt received from catholic priest. Pt A&O and in no apparent distress. Right groin and left pedal site clean dry and intact with no visual complications noted. All circulation assessments noted. Pt to be on bedrest til 1130p. All safety measures ensured.
--- OUTSIDE RECORDS SUMMARY | 2018-12-08 22:13 | XMS REPORT | Clinical Summary ---
Author Author [facility] Organization [facility] Address Unknown Phone Unavailable Care Team Providers Care Plug Stitcher Name Role Phone Tessa Merrill MD PCP [...] (203 lb 6.4 oz) 10/11/2018 6:11 AM EXPLOSIVE SPECIALIST Height 180.3 cm (5' 11") 10/25/2018 8:57 [...] Area Manufactur er 05/15/2023 [id number] 205 / [id number] / [id number] Lens Ascrysof Aspheric Uv Absorbing Intraocula Left: Eye AMAN 20.5.Od 13mmx6.0mm - [id number] - r [employer] [id number] [employer]plant [employer] Implanted: Qty: 1 on 10/11/2018 by Nish Ramsey MD 04/15/2023 [id number] 210 / [id number] / [id number] Lens Ascrysof Aspheric Uv Absorbing Intraocula Right: Eye AMAN 21.0.Od 13mmx6.0mm - [id number] - r Lens [employer] [id number] [employer] Implanted: Qty: 1 on 10/25/2018 by Nish Ramsey MD Procedures Comments Procedure Name Priority Date/Time Associated Diagnosis PHACOEMULSIFICATION, 10/25/2018 Age-related nuclear CATARACT, WITH IOL 10:40 AM CDT cataract, right IMPLANTATION Special Needs SA60WF +21.00 PHACOEMULSIFICATION, 10/11/2018 Age-related nuclear CATARACT, WITH IOL 7:25 AM EXPLOSIVE SPECIALIST cataract of left eye IMPLANTATION Special Needs SA60WF+20. 50 ECG ED PRELIMINARY Routine 06/20/2018 INTERPRETATION 7:03 PM EXPLOSIVE SPECIALIST ESTIMATED GFR STAT 06/20/2018 5:56 PM EXPLOSIVE SPECIALIST PROTHROMBIN TIME WITH INR STAT 06/20/2018 5:56 PM EXPLOSIVE SPECIALIST PARTIAL THROMBOPLASTIN STAT 06/20/2018 TIME (PTT) 5:56 PM EXPLOSIVE SPECIALIST B NATRIURETIC PEPTIDE STAT 06/20/2018 5:56 PM EXPLOSIVE SPECIALIST TROPONIN STAT 06/20/2018 5:56 PM EXPLOSIVE SPECIALIST COMPREHENSIVE METABOLIC STAT 06/20/2018 PANEL 5:56 PM EXPLOSIVE SPECIALIST HC COMPLETE BLD COUNT STAT 06/20/2018 W/AUTO DIFF 5:56 PM EXPLOSIVE SPECIALIST XR CHEST 2 VW STAT 06/20/2018 5:42 PM EXPLOSIVE SPECIALIST ECG 12-LEAD STAT 06/20/2018 4:56 PM EXPLOSIVE SPECIALIST after 12/07/2017 Results * ECG ED Preliminary Interpretation - NOT AN ORDER (06/20/2018 7:03 PM EXPLOSIVE SPECIALIST) Narrative Performed At Radha Chin Jr., MD 06/22/20183:56 AM ECG ED Preliminary Interpretation - Not an Order Performed by: RADHA CHIN JR. Authorized by: RADHA CHIN JR. ECG reviewed by ED Physician in the absence of a client development director: yes Rate: ECG rate:82 ECG rate assessment: normal Rhythm: Rhythm: sinus rhythm Ectopy: Ectopy: none QRS: QRS axis:Normal QRS intervals:Normal ST segments: ST segments:Abnormal ST segment depression noted on lead: mild, noted diffusely. * Estimated GFR (06/20/2018 5:56 PM EXPLOSIVE SPECIALIST) Estimated GFR 48 (A) mL/min/1.73 m2 [facility] DEPARTMENT OF Comment: PATHOLOGY AND [employer]oryUnitsInte GENOMIC MEDICINE rpretation G1 >=90 Normal or high G2 60-89Mildly decreased V1m45-30 Mildly to moderately decreased C8p79-18 Moderately to severely decreased G4 15-29Severely decreased G5 <15Kidney failure The eGFR was calculated using the Chronic Kidney Disease Epidemiology Collaboration (CKD-EPI) equation. Interpretation is based on recommendations of the National Kidney Foundation-Kidney Disease Outcomes Quality Initiative (NKF-KDOQI) published in 2014. Specimen Plasma specimen Performing Organization Address City/State/Zipcode Phone Number [facility] DEPARTMENT OF [address] [place] [address] PATHOLOGY AND GENOMIC MEDICINE * Troponin (06/20/2018 5:56 PM EXPLOSIVE SPECIALIST) Troponin <0.30 0.00 - 0.30 ng/mL [facility] DEPARTMENT OF Comment: PATHOLOGY AND 0.11 - 1.49 GENOMIC MEDICINE ng/mlMay indicate increased risk of acute coronary syndrome. >=1.5 ng/ml Consistent with acute myocardial infarction. The diagnostic value of a single normal or non-diagnostic result is questionable.Serial samples at 2-6 hour intervals are required to rule out acute myocardial injury. Specimen Plasma specimen Performing Organization Address [facility] Phone Number [facility] [address] [place] [phone] PATHOLOGY AND [employer] [facility] * Partial thromboplastin time, activated (06/20/2018 5:56 PM EXPLOSIVE SPECIALIST) PTT 27.8 23.0 - 36.0 sec [facility] DEPARTMENT OF Comment: PATHOLOGY AND PTT therapeutic range for GENOMIC MEDICINE unfractionated heparin is 61.0-112.0 seconds which corresponds to Anti-Xa 0.3-0.7 U/ml. Note:Change in Panic Value The PTT Panic Value is changing from 110 sec. to 100 sec. due to new instrumentation and reagents. Correlation studies have been performed to validate this result. Specimen Blood Performing Organization Address [facility] [place] [address] [place] [address] PATHOLOGY AND [employer] [facility] * Prothrombin time with INR (06/20/2018 5:56 PM EXPLOSIVE SPECIALIST) Prothrombin time 12.5 11.5 - 14.5 sec [facility] DEPARTMENT OF PATHOLOGY AND [employer] MEDICINE INR 0.96 [facility] DEPARTMENT OF Comment: PATHOLOGY AND For patients on anticoagulant GENOMIC MEDICINE therapy, reference ranges below: Indication: INR Value Treatment of Venous Thrombosis, 2.0-3.0 pulmonary emboli, or prophylaxis of a venous thrombosis, or systemic emboli. High dose, high risk patients 3.0-4.5 with mechanical valves. NOTE:INR values over 3.0 are sometimes associated with gastrointestinal hemorrhage, especially values over 4.0. Specimen Blood Performing Organization Address [facility] Phone Number [facility] [address] [place] [address]. [place] [phone] PATHOLOGY AND [employer] MEDICINE * CBC with platelet and differential (06/20/2018 5:56 PM EXPLOSIVE SPECIALIST) WBC 7.1 4.2 - 11.0 k/uL [facility] DEPARTMENT OF PATHOLOGY AND GENOMIC MEDICINE RBC 4.63 4.04 - 5.86 m/uL [facility] DEPARTMENT OF PATHOLOGY AND GENOMIC MEDICINE HGB 14.8 13.0 - 17.3 g/dL [facility] DEPARTMENT OF PATHOLOGY AND GENOMIC MEDICINE HCT 44.3 34.0 - 45.0 % [facility] DEPARTMENT OF PATHOLOGY AND GENOMIC MEDICINE MCV 95.7 80.0 - 98.0 fL [facility] DEPARTMENT OF PATHOLOGY AND GENOMIC MEDICINE MCH 32.0 27.0 - 34.0 pg [facility] DEPARTMENT OF PATHOLOGY AND GENOMIC MEDICINE MCHC 33.4 31.5 - 36.5 g/dL [facility] DEPARTMENT OF PATHOLOGY AND GENOMIC MEDICINE RDW - SD 45.4 37.0 - 51.0 fL [facility] DEPARTMENT OF PATHOLOGY AND GENOMIC MEDICINE MPV 10.5 (H) 7.4 - 10.4 fL [facility] DEPARTMENT OF PATHOLOGY AND GENOMIC MEDICINE Platelet count 211 150 - 400 k/uL [facility] DEPARTMENT OF PATHOLOGY AND GENOMIC MEDICINE Nucleated RBC 0.00 /100 WBC [facility] DEPARTMENT OF PATHOLOGY AND GENOMIC MEDICINE Neutrophils 71.5 (H) 36.0 - 66.0 % [facility] DEPARTMENT OF PATHOLOGY AND GENOMIC MEDICINE Lymphocytes 11.9 (L) 24.0 - 44.0 % [facility] DEPARTMENT OF PATHOLOGY AND GENOMIC MEDICINE Monocytes 13.7 (H) 0.0 - 6.0 % [facility] DEPARTMENT OF PATHOLOGY AND GENOMIC MEDICINE Eosinophils 1.8 0.0 - 6.0 % [facility] DEPARTMENT OF PATHOLOGY AND GENOMIC MEDICINE Basophils 0.8 0.0 - 1.2 % [facility] DEPARTMENT OF PATHOLOGY AND GENOMIC MEDICINE Immature granulocytes 0.3 0.0 - 1.0 % [facility] DEPARTMENT OF PATHOLOGY AND GENOMIC MEDICINE Specimen Blood Performing Organization Address City/[facility] [place] [address] PATHOLOGY AND GENOMIC MEDICINE * B natriuretic peptide (06/20/2018 5:56 PM EXPLOSIVE SPECIALIST) BNP 96 0 - 100 pg/mL [facility] DEPARTMENT PATHOLOGY AND GENOMIC MEDICINE Specimen Blood Performing Organization Address City/[facility] [place] [address] PATHOLOGY AND GENOMIC [facility] * Comprehensive metabolic panel (06/20/2018 5:56 PM EXPLOSIVE SPECIALIST) Sodium 138 135 - 150 mEq/L [facility] DEPARTMENT OF PATHOLOGY AND GENOMIC MEDICINE Potassium 4.1 3.5 - 5.0 mEq/L [facility] DEPARTMENT OF PATHOLOGY AND GENOMIC MEDICINE Chloride 102 98 - 112 mEq/L [facility] DEPARTMENT OF PATHOLOGY AND GENOMIC MEDICINE CO2 25 24 - 31 mmol/L [facility] DEPARTMENT OF PATHOLOGY AND GENOMIC MEDICINE Anion gap 11@ANIO 7 - 15 mEq/L [facility] DEPARTMENT OF PATHOLOGY AND GENOMIC MEDICINE BUN 19 (H) 7 - 18 mg/dL [facility] DEPARTMENT OF PATHOLOGY AND GENOMIC MEDICINE Creatinine 1.40 (H) 0.70 - 1.20 mg/dL [facility] DEPARTMENT OF PATHOLOGY AND GENOMIC MEDICINE Glucose 111 (H) 65 - 100 mg/dL [facility] DEPARTMENT OF PATHOLOGY AND GENOMIC MEDICINE Calcium 8.9 8.8 - 10.2 mg/dL [facility] DEPARTMENT OF PATHOLOGY AND GENOMIC MEDICINE Protein 6.5 6.3 - 8.3 g/dL [facility] DEPARTMENT OF PATHOLOGY AND GENOMIC MEDICINE Albumin 3.7 3.5 - 5.0 g/dL [facility] DEPARTMENT OF PATHOLOGY AND GENOMIC MEDICINE A/G ratio 1.3 0.7 - 3.8 [facility] DEPARTMENT OF PATHOLOGY AND GENOMIC MEDICINE Alkaline phosphatase 30 0 - 129 U/L [facility] DEPARTMENT OF PATHOLOGY AND GENOMIC MEDICINE AST 19 10 - 50 U/L [facility] DEPARTMENT OF PATHOLOGY AND GENOMIC MEDICINE ALT 16 5 - 50 U/L [facility] DEPARTMENT OF PATHOLOGY AND GENOMIC MEDICINE Total bilirubin 0.4 0.2 - 1.2 mg/dL [facility] DEPARTMENT OF PATHOLOGY AND GENOMIC MEDICINE Specimen Plasma specimen Performing Organization Address City/State/Zipcode Phone Number [facility] DEPARTMENT [address] [place] [address] PATHOLOGY AND GENOMIC MEDICINE * XR Chest 2 Vw (06/20/2018 5:42 PM EXPLOSIVE SPECIALIST) Narrative Performed At EXAMINATION:XR CHEST 2 VW [...] limits. 4.There is no significant skeletal abnormality. [id number] Procedure Note Interface, Radiology Results Incoming - 06/20/2018 5:47 PM EXPLOSIVE SPECIALIST EXAMINATION: XR CHEST 2 VW CLINICAL HISTORY: [...] 4. There is no significant skeletal abnormality. [id number] Performing Organization Address City/State/Zipcode Phone Number [facility] [address] [place] [address] * ECG 12 lead (06/20/2018 4:56 PM EXPLOSIVE SPECIALIST) Ventricular rate 82 [facility] Atrial rate 82 [facility] MI interval 126 [facility] QRSD interval 84 [facility] QT interval 372 [facility] QTC interval 434 [facility] P axis 1 59 [facility] QRS axis 1 -19 [facility] T wave axis 22 [facility] EKG impression Normal sinus [facility] rhythm-Nonspecific ST abnormality-Abnormal ECG-No previous ECGs available- Performing Organization Address City/[facility]/Zipcode Phone Number [facility] [address] [place] [address] after 12/07/2017 Insurance Payer Benefit Subscriber ID Type Phone Address Plan / Group UHC MEDICARE UHC xxxxxxxxx O MEDICARE HMO/PPO Advance Directives Patient has advance care planning documents on file. For more information, [place] contact: Tho Gonsales [address] [place] [address]
--- NOTE | 2018-12-09 00:26 | NUR ---
Pt discharged home per MD order. Pt A&O and in no distress. Pt assesses and cath sites clean dry and intact and show no signs of complications. Pt discharge papers signed and pt verbalized understanding. Pt given discharge and care instructions and written rx from the doctor. Pt escorted to ER pickup area by staff member and taken home by spouse.
--- NOTE | 2019-02-03 00:29 | Operative Report ---
DATE OF PROCEDURE: 12/08/2018 SURGEON: Kal Shi DO PROCEDURES PERFORMED: 1. Abdominal aortography. 2. Third-order peripheral angiography of the left lower extremity. 3. Attempted percutaneous transluminal angioplasty of the posterior tibial and anterior tibial arteries. PREPROCEDURE DIAGNOSIS: Peripheral artery disease. POSTPROCEDURE DIAGNOSIS: Peripheral artery disease. ESTIMATED BLOOD LOSS: Less than 20 mL. SPECIMENS REMOVED: None. PROCEDURE IN DETAIL: After informed consent was obtained, the patient was brought to the cardiac catheterization laboratory in a fasting and nonsedated state. Bilateral groins were prepped and draped in the usual sterile fashion. A 2% lidocaine was instilled over the right anterior groin for local anesthesia. Using micropuncture needle, the right femoral artery was accessed via the modified Seldinger technique and a 5-Kinyarwanda sheath was placed. Next, abdominal aortography was performed using Omni Flush catheter. Next, this was crossed up and over the iliac bifurcation and placed in the third-order position. Diagnostic peripheral angiography was performed. Next, the patient received heparin for therapeutic anticoagulation. Next, I attempted to cross the chronic total occlusions of the anterior tibial and posterior tibial arteries with wire escalation without success. The patient tolerated the procedure well no immediate complications, transferred back to his room in stable condition. Hemostasis was achieved via Angio-Seal device. PROCEDURAL FINDINGS: 1. Abdominal aorta is patent. 2. The left iliac system and femoral system are patent. 3. There is 60% stenosis in the popliteal vessel. 4. The tibioperoneal trunk is patent as is the peroneal. 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 IMPRESSION: Severe peripheral artery disease. RECOMMENDATIONS: Continue aggressive medical therapy. Kal Shi DO BM/MODL /[id number]
== END 2018-12-09 01:00 | disposition home or self-care (01) ==
LOC: CATH LAB 07:32 → IMCU 22:10
PROVIDERS: ADMIT Internal Medicine Cardiovascular Disease; ATTEND Internal Medicine Cardiovascular Disease
DX: I70.202 Unspecified atherosclerosis of native arteries of extremities, left leg (principal); I70.92 Chronic total occlusion of artery of the extremities; I87.2 Venous insufficiency (chronic) (peripheral); R07.2 Precordial pain; I10 Essential (primary) hypertension; R06.02 Shortness of breath; R60.0 Localized edema; I20.9 Angina pectoris, unspecified
CPT/HCPCS: 36415; 37228; 75625; 75710; 80053; 85025; 85610; C1769 ×4; G0378 ×2; J2001; J2250; J7030; Q9967 ×2; 36247; C1760; C1887; J3010